=== PATIENT | female | born 1945 | race Caucasian/White ===

== ENCOUNTER 2016-04-24 07:17 | Emergency (ER) | payer MEDICARE, BC ==
--- NOTE | 2016-04-24 07:47 | UC ---
Skin Complaint HPI - History of Current Complaint Chief Complaint: UCSkin Time Seen by Provider: 04/24/16 07:38 Stated Complaint: SKIN COMPLAINT Hx Obtained From: Patient Hx Last Menstrual Period: age 26 yrs ?: No Onset/Duration: Sudden Onset, Lasting Weeks - 2, Still Present Timing: Constant Onset Severity: Mild Current Severity: Moderate Location: Nose - Just on the tip. Character: Redness, Painful Aggravating: Touch - which can also cause bleeding. Alleviating: Nothing Associated Signs & Symptoms: Positive: Chills, Tenderness Related History: Diabetes, Other: - possible cold sores. - Allergy/Home Medications Allergies/Adverse Reactions: Allergies Allergy/AdvReac Type Severity Reaction Status Date / Time No Known Allergies Allergy Verified 04/24/16 07:21 Home Medications: Home Medications Cyanocobalamin TAB* [Vitamin B12 TAB*] 1,000 mcg PO DAILY 04/24/16 [History Confirmed 04/24/16] Folic Acid TAB* [Folvite TAB*] 1 mg PO DAILY 04/24/16 [History Confirmed ] Hydrochlorothiazide TAB* [Hydrodiuril TAB*] 25 mg PO DAILY 04/24/16 [History Confirmed 04/24/16] Review of Systems Constitutional: Chills Skin: Rash All Other Systems Reviewed And Are Negative: Yes PMH/Surg Hx/FS Hx/Imm Hx Endocrine History Of: Reports: Diabetes Cardiovascular History Of: Reports: Cardiac Disorders - murmur, Hypertension - Surgical History Surgical History: Yes Surgery Procedure, Year, and Place: B/L carpal tunnel. hysterectomy. colonoscopy/endoscopy, esophageal vessel cautery. L hip fx 10/08 - Family History Known Family History: Positive: Cardiac Disease, Hypertension, Diabetes - Social History Occupation: Retired Lives: With Family Alcohol Use: None Substance Use Type: None Smoking Status (MU): Never Smoked Tobacco Physical Exam Triage Information Reviewed: Yes Appearance: Well-Appearing, No Pain Distress, Well-Nourished Vital Signs: Initial Vital Signs Temp 98.8 F 04/24/16 07:24 Pulse 78 04/24/16 07:24 Resp 18 04/24/16 07:24 BP 159/75 04/24/16 07:24 Pulse Ox 98 04/24/16 07:24 Vital Signs Reviewed: Yes Eyes: Positive: Conjunctiva Clear ENT: Positive: Pharynx normal, TMs normal Neck exam: Normal Respiratory Exam: Normal Cardiovascular Exam: Normal Musculoskeletal Exam: Normal Neurological Exam: Normal Psychological Exam: Normal Skin: Positive: Other - Erythema with a pustule on the right external nares. Course/Dx - Differential Diagnoses - Skin Complaint Differential Diagnoses: Abscess, Cellulitis, Impetigo - Diagnoses Provider Diagnoses: Cellulitis nose Discharge - Discharge Plan Condition: Stable Disposition: HOME Prescriptions: Mupirocin 2% OINT* [Bactroban 2 % Oint*] 1 applic TOPICAL TID #1 tube Sulfamethox/Trimethoprim DS* [Bactrim DS 800/160 TAB*] 1 tab PO BID #14 tab Patient Education Materials: Cellulitis (ED), Sulfamethoxazole/Trimethoprim ( By mouth), Mupirocin (Into the nose)
[2016-04-24 07:58] VITALS: BP 154/67
== END 2016-04-24 07:57 | disposition home or self-care (01) ==
LOC: UCCORT 07:17
DX: J34.0 Abscess, furuncle and carbuncle of nose (principal); I10 Essential (primary) hypertension; R01.1 Cardiac murmur, unspecified
CPT/HCPCS: 99212; G0463

== ENCOUNTER 2017-12-31 09:23 | Emergency (ER) | payer MEDICARE, BC ==
[2017-12-31 10:57] VITALS: BP 169/60
--- NOTE | 2017-12-31 11:50 | UC ---
Throat Pain/Nasal Iván HPI - HPI Summary HPI Summary: 72 yo diabetic with 6th day of sore throat, progressive cough with occasional production, some shortness of breath, chest discomfort with coughing, loss of voice. No hx of lung disease. - History of Current Complaint Chief Complaint: UCRespiratory Stated Complaint: VOICE LOSS Time Seen by Provider: 12/31/17 11:44 Hx Obtained From: Patient Hx Last Menstrual Period: age 26 yrs Onset/Duration: Gradual Onset, Lasting Days - 6 Severity: Moderate Pain Intensity: 0 Cough: Sputum Appears - clear Associated Signs & Symptoms: Positive: Dysphagia, Hoarseness - Epiglottits Risk Factors Epiglottis Risk Factors: Negative - Allergies/Home Medications Allergies/Adverse Reactions: Allergies Allergy/AdvReac Type Severity Reaction Status Date / Time sulfamethoxazole Allergy Unknown Verified 12/31/17 10:51 [From Bactrim] Reaction Details trimethoprim [From Bactrim] Allergy Unknown Verified 12/31/17 10:51 Reaction Details Home Medications: Home Medications Cholecalciferol TAB* [Vitamin D TAB*] 1,000 unit PO DAILY 12/31/17 [History Confirmed 12/31/17] PMH/Surg Hx/FS Hx/Imm Hx Endocrine History: Diabetes Cardiovascular History: Hypertension - Surgical History Surgical History: Yes Surgery Procedure, Year, and Place: B/L carpal tunnel. hysterectomy. colonoscopy/endoscopy, esophageal vessel cautery. L hip fx 10/08 - Family History Known Family History: Positive: Cardiac Disease, Hypertension, Diabetes - father - Social History Occupation: Retired Alcohol Use: None Substance Use Type: None Smoking Status (MU): Never Smoked Tobacco Review of Systems Constitutional: Fatigue ENT: Sore Throat, Nasal Discharge Neurological: Headache Is Patient Immunocompromised?: No All Other Systems Reviewed And Are Negative: Yes Physical Exam Triage Information Reviewed: Yes Appearance: Ill-Appearing - looks fatigued and unwell Vital Signs: Initial Vital Signs Temp 99 F 12/31/17 10:53 Pulse 75 12/31/17 10:53 Resp 18 12/31/17 10:53 BP 169/60 12/31/17 10:53 Pulse Ox 97 12/31/17 10:53 Eyes: Positive: Conjunctiva Clear ENT: Positive: Pharyngeal erythema - past tonsillectomy Dental Exam: Normal Neck exam: Normal Respiratory: Positive: Decreased breath sounds, Rhonchi Cardiovascular: Positive: RRR, No Murmur - hx of murmur, not heard today Musculoskeletal Exam: Normal Neurological: Positive: Alert, Muscle Tone Normal Skin Exam: Normal Throat Pain/Nasal Course/Dx - Course Course Of Treatment: amoxicillin for pharyngitis/persistent illness in diabetic. guaifensin as expectorant. - Differential Dx/Diagnosis Differential Diagnosis/HQI/PQRI: Laryngitis, Pharyngitis, URI Provider Diagnoses: pharyngitis Discharge - Sign-Out/Discharge Documenting (check all that apply): Patient Departure All imaging exams completed and their final reports reviewed: No Studies - Discharge Plan Condition: Stable Disposition: HOME Prescriptions: Amoxicillin PO (*) [Amoxicillin 875 MG (*)] 875 mg PO BID #14 tab Patient Education Materials: Pharyngitis (ED) Referrals: Padmini Bunn MD [Primary Care Provider] - Additional Instructions: You have been given amoxicillin for treatment because of worsening cough and persistent illness. To help to relieve the harsh cough, I suggest use of Mucinex (guaifensin) 600mg twice daily as an expectorant. This should help to ease the irritation. Follow up if you develop fever or worsening shortness of breath. - Billing Disposition and Condition Condition: STABLE Disposition: Home
== END 2017-12-31 11:58 | disposition home or self-care (01) ==
LOC: UCCORT 09:23
DX: J02.9 Acute pharyngitis, unspecified (principal); E11.9 Type 2 diabetes mellitus without complications; R05 Cough; R06.02 Shortness of breath; I10 Essential (primary) hypertension; Z88.2 Allergy status to sulfonamides
CPT/HCPCS: 99212; G0463